=== PATIENT | male | born 1995 | race Caucasian/White ===

== ENCOUNTER 2018-01-21 13:33 | Inpatient (IN) | payer OTHER ==
--- NOTE | 2018-01-21 14:24 | EDPHY ---
H & P Stated Complaint: SI w/ plan Time Seen by Provider: 01/21/18 14:15 HPI/ROS: CHIEF COMPLAINT: Attempted suicide HISTORY OF PRESENT ILLNESS: The patient presents to the ED after failed suicide attempt. 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 The patient reportedly has been feeling despondent secondary to problem surrounding self worth. The patient denies any additional ingestion. He did take some [id number] sleeping pills last night. The patient has attempted suicide before in the past and has not sought care following those attempts. The patient did go to the [facility] and was seen by a counselor at the psychiatric service air who placed the patient on a M1 hold. REVIEW OF SYSTEMS: A comprehensive 10 point review of systems is otherwise negative aside from elements mentioned in the history of present illness. Source: Patient Exam Limitations: No limitations - Personal History Current Tetanus/Diphtheria Vaccine: Yes Current Tetanus Diphtheria and Acellular Pertussis (TDAP): Yes - Medical/Surgical History Hx Asthma: Yes Hx Chronic Respiratory Disease: No Hx Diabetes: No Hx Cardiac Disease: No Hx Renal Disease: No Hx Cirrhosis: No Hx Alcoholism: No Hx HIV/AIDS: No Hx Splenectomy or Spleen Trauma: No Other PMH: wisdom teeth - Social History Smoking Status: Never smoked - Physical Exam Exam: General Appearance: Alert, no distress Eyes: Pupils equal and round no pallor or injection ENT, Mouth: Mucous membranes moist Respiratory: There are no retractions, lungs are clear to auscultation Cardiovascular: Regular rate and rhythm Gastrointestinal: Abdomen is soft and nontender, no masses, bowel sounds normal Neurological: A&O, normal motor function, normal sensory exam, normal cranial nerves Skin: Warm and dry, no rashes Musculoskeletal: Neck is supple nontender Extremities: symmetrical, full range of motion Psychiatric: Suicidal, tearful, endorses ongoing suicidal ideation with plan, cooperative, non agitated, normal thought content and process Constitutional: Initial Vital Signs Temperature (C) 36.7 C 01/21/18 13:33 Heart Rate 102 H 01/21/18 13:33 Respiratory Rate 16 01/21/18 13:33 Blood Pressure 162/90 H 01/21/18 13:33 O2 Sat (%) 95 01/21/18 13:33 O2 Delivery Mode Room Air Allergies/Adverse Reactions: No Known Allergies Allergy (Unverified 01/21/18 13:49) Home Medications: Medication Instructions Recorded Vitamins 01/21/18 Medical Decision Making ED Course/Re-evaluation: The patient presents the emergency department with suicidal ideation having a recent failed suicide attempt. The patient was placed on an M1 psychiatric hold prior to arrival. The patient was medically cleared for psychiatric evaluation by myself at 3:00 p.m.. I did review the patient's screening laboratory studies including a CBC, serum chemistries and urine toxicology panel. Update at 5:00 p.m.: The patient was seen by the psychiatric service in the ED and has been accepted for involuntary psychiatric hospitalization at the inpatient unit at [facility] by Dr. Wander Dubon. I have filled out the EMTALA transfer form. Differential Diagnosis: Differential diagnosis considered includes suicidal ideation, suicide attempt, depression, bipolar mood disorder, psychosis - Data Points Laboratory Results: Laboratory Results 01/21/18 14:28 01/21/18 14:28 01/21/18 01/21/18 01/21/18 14:56 14:28 14:28 WBC 10.76 10^3/uL H 10^3/uL (3.80-9.50) RBC 5.31 10^6/uL 10^6/uL (4.40-6.38) Hgb 15.5 g/dL g/dL (13.7-17.5) Hct 45.2 % % (40.0-51.0) MCV 85.1 fL fL (81.5-99.8) MCH 29.2 pg pg (27.9-34.1) MCHC 34.3 g/dL g/dL (32.4-36.7) RDW 12.1 % % (11.5-15.2) Plt Count 309 10^3/uL 10^3/uL (150-400) MPV 9.8 fL fL (8.7-11.7) Neut % (Auto) 68.6 % % (39.3-74.2) Lymph % (Auto) 24.3 % % (15.0-45.0) Grant % (Auto) 6.1 % % (4.5-13.0) Eos % (Auto) 0.2 % L % (0.6-7.6) Baso % (Auto) 0.6 % % (0.3-1.7) Nucleat RBC Rel Count 0.0 % % (0.0-0.2) Absolute Neuts (auto) 7.39 10^3/uL H 10^3/uL (1.70-6.50) Absolute Lymphs (auto) 2.61 10^3/uL 10^3/uL (1.00-3.00) Absolute Monos (auto) 0.66 10^3/uL 10^3/uL (0.30-0.80) Absolute Eos (auto) 0.02 10^3/uL L 10^3/uL (0.03-0.40) Absolute Basos (auto) 0.06 10^3/uL 10^3/uL (0.02-0.10) Absolute Nucleated RBC 0.00 10^3/uL 10^3/uL (0-0.01) Immature Gran % 0.2 % % (0.0-1.1) Immature Gran # 0.02 10^3/uL 10^3/uL (0.00-0.10) Sodium 142 mEq/L mEq/L (135-145) Potassium 4.0 mEq/L mEq/L (3.5-5.2) Chloride 105 mEq/L mEq/L (97-110) Carbon Dioxide 25 mEq/l mEq/l (22-31) Anion Gap 12 mEq/L mEq/L (6-14) BUN 13 mg/dL mg/dL (7-23) Creatinine 0.6 mg/dL L mg/dL (0.7-1.3) Estimated GFR > 60 Glucose 78 mg/dL mg/dL (70-100) Calcium 9.2 mg/dL mg/dL (8.5-10.4) Urine Opiates Screen NEGATIVE (NEGATIVE) Urine Barbiturates NEGATIVE (NEGATIVE) Ur Phencyclidine Scrn NEGATIVE (NEGATIVE) Ur Amphetamine Screen NEGATIVE (NEGATIVE) U Benzodiazepines Scrn NEGATIVE (NEGATIVE) Urine Cocaine Screen NEGATIVE (NEGATIVE) U Marijuana (THC) Screen NEGATIVE (NEGATIVE) Ethyl Alcohol < 10 mg/dL mg/dL (0-10) Departure - Departure Disposition: [facility] IP Clinical Impression: Suicidal ideation, Severe major depression, Suicide attempt Condition: Good Referrals: NONE *PRIMARY CARE P,. [Primary Care Provider] - As per Instructions
[2018-01-21 14:37] LABS: PLATELET COUNT 309 10^3/uL (150-400)
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
--- NOTE | 2018-01-21 18:55 | ASMTTCLDSP ---
TLC Discharge Disposition Disposition: Answers: Admit Discharge Concerns/Recommendations: Notes: In consultation with [facility] ED physician, Tony Nick MD and [facility] on-call psychiatrist, Wander Dubon MD, both concurred that pt appears to meet 27-65 criteria requiring psychiatric hospitalization as the patient appears to be an imminent risk of harm to self due to a mental illness condition. The patient was given the 3[facility] prohibited belongings list while in the ED. Was patient given the Answers: Yes Inpatient Behavioral Health Prohibited Belongings List while in the ED? For inpatient Wander Dubon MD admission, the following psychiatrist agreed to accept patient for admission to Behavioral Health ([facility]): Type of Hold: Answers: M1/72-hour Hold Hold initiated by: Answers: Other Notes: [facility] Clinicians Date Signed: 01/21/2018 06:55 PM Electronically Signed By:Maame Ma
--- NOTE | 2018-01-21 21:19 | GCON ---
MEDICINE CONSULTATION DATE OF CONSULTATION: 01/21/2018 CHIEF COMPLAINT: Suicidal ideation. HISTORY: This is a 22-year-old man with a past medical history only of depression, who presents to [facility] following a suicide attempt yesterday. The patient stated to the ER doc that he attempted to k ill himself yesterday by inhaling propane. He notes he has been having issues with feeling down and depressed for quite some time. At this time, physically he feels well. He states he has had suicide attempts in the past but has not sought care. He states he has never been in a psychiatric hospital in the past. The patient is currently on an M1 hold, awaiting transfer to [facility]. PAST MEDICAL HISTORY: Denies. PAST SURGICAL HISTORY: Ringle teeth removal. FAMILY HISTORY: He notes grandmother with colon problems and dementia. 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 He is a nondrinker, non smok er, and nondrug user. REVIEW OF SYSTEMS: 10-point review of systems negative except as per HPI. HOME MEDICATIONS: None. ALLERGIES: No known drug allergies. PHYSICAL EXAM: VITAL SIGNS: BP 145/84, heart rate 105, respiratory rate 16, O2 sats 97% on room air . Temperature is 37. GENERAL APPEARANCE: This is a well-developed, well-nourished man. He is awak e and alert. He is depressed appearing. EYES: Anicteric. HENT: Oropharynx clear. CARDIOVASCULAR: Tachycardic, regular, no MRG. PULMONARY: CTA bilaterally. ABDOMEN: Soft, nontender. Positive b owel sounds. EXTREMITIES: No clubbing, cyanosis, or edema. SKIN: Warm, dry, well perfused. NEURO/PSYCH: Patient is somewhat withdrawn and has a depressed affect. He is courteous but reserved . CLINICAL DATA: Labs reviewed. Notable for white blood cell count of 10.7. Chemistry is unremarkabl e. Tox screen is negative. ASSESSMENT/PLAN: This is a 22-year-old man with no significant past medical history other than mood disorder, presenting with suicide attempt. 1. Suicide attempt in the setting of prolonged what sounds like depression. Patient has not sought psychiatric care in the past. He will be admitted to the behavioral health unit. He is on an M1 hol d. I do not see any medical reason to defer any treatment or medication deemed [facility]. 2. Leukocytosis. Suspect this is a stress response. No other signs or symptoms of infection at thi s time. 3. Tachycardia in the setting of anxiety likely related to the same. No further workup indicated un less this becomes persistent over many days in which case he should follow up with his outpatient car e provider. Thank you for this consultation. Medicine will be available peripherally should questions or concern s arise during this patient's hospitalization. Patient is new to my care. Old records reviewed, summarized as per HPI and past medical history. Ca re plan reviewed with ER physician including plans for behavioral health inpatient service. /[id number]/MODL
[2018-01-21] MEDS ORDERED: LORazepam 0.5 MG TAB PO PRN (21:24)
[2018-01-21] MEDS ORDERED: MAG HYDROX/AL HYDROX/SIMETH 30 ML UDCUP PO PRN (21:24)
[2018-01-21] MEDS ORDERED: OLANZapine DISINTEGR 5 MG TAB PO PRN (21:24)
[2018-01-21] MEDS ORDERED: ACETAMINOPHEN 325 MG TAB PO PRN (21:24)
[2018-01-21] MEDS ORDERED: NICOTINE POLACRILEX 2 MG GUM B PRN (21:24)
[2018-01-21] MEDS ORDERED: MAGNESIUM HYDROXIDE 30 ML UDCUP PO PRN (21:24)
--- NOTE | 2018-01-22 07:27 | ASMTBHMTP ---
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 He isliving a home with two roommates in [place], [place]. The patient arrived via EMS on an M1 hold placed by [facility] clinicians after patient self-presented to the walk-in hours and reported suicide attempt, ideation, intent, and plan. Per M1 hold, Mick presents to walk in reporting SI + plan to use propane to asphyxiate himself. Last night took sleeping pills to disinhibit himself so he would not stop himself, but fell asleep. Continues to have SI + planunable to contract for safety. Mick left a suicide note in his bedroom. During the evaluation, the patient had his arms crossed on his chest in an upright position. He was tearful and avoided eye contact with this handbook writer. The patient was calm and cooperative. Patient's stated presenting problems: Notes: "because I was suicidal..." Patient's goals for treatment: Notes: "to over come those feelings (S/I) and cope with them." Patient's strengths: Notes: "smart" Identify supports outside of hospital: Notes: Possibly my Mother, but we don't talk much." Discharge criteria: Notes: Suicidal Ideation will resolve and patient will have a plan to safely manage recurrent suicidal ideation.* Initial disposition plan/considerations: Notes: Return to apartment Master Treatment Plan Required Signatures Psychiatrist signature: Answers: Psychiatrist: RN on-shift signature: Answers: RN: Patient signature: Answers: Patient: Date Signed: 01/22/2018 07:26 AM Electronically Signed By:Charles Lubin
[2018-01-22] MEDS ORDERED: PNEUMOCOCCAL 0.5ML VACCINE VIAL (PNEUMOVAX 23) IM ONE (10:46)
--- NOTE | 2018-01-22 13:38 | PDMN ---
Medical Necessity Medical necessity: Pt meets inpt criteria per MD order and [facility], Major Depressive Disorder, Adult: Inpatient Care, 3 days. 22 y/o on M1 Hold due to risk of harm to self/suicidal ideation, admitted w/major depressive disorder, single episode, severe, requiring inpt psychiatric hospitalization.
--- NOTE | 2018-01-22 16:39 | BAPA ---
DATE OF SERVICE: 01/22/2018 CHIEF COMPLAINT: "I was just feeling really bad." HISTORY OF PRESENT ILLNESS: Patient is a 22-year-old male with no previous psychiatric his tory per se, though a history of recurrent high lethality suicide attempts. He was [facility] to the [facility] after he presented to the [facility] program yesterday. He told them that he had purchased a propane tank and some plastic bags and had intended to take sleeping pills and then wrap his head in the bag and turn on the propane to kill himself. He stated he had previous attempts in a similar fashion with helium, which he states did not work because they had somehow diluted the sara um, by lying on a railroad track, and by hanging himself. He denies, however, ever having been diagn osed or treated for any mental illness per se or having any psychiatric hospitalizations. When I jeannette k with him today, he is calm and cooperative and states that he feels somewhat lonely and ostracized, though he has felt this way his whole life. He states that when he was young, his parents and that later in life, he found a letter that was either some part of their divorce or something hi s father had written to his mother. In the letter, his father outlined that they got a divorce becau se he was addicted to pornography including child pornography, and was verbally abusive. The letter went on to state that he compelled the patient's mother to have an when they were first ruby ied because he did not want children at that time and that he also wanted her to have an whe n she was with the patient. It is something that has hurt his feelings since that time. The patient states that his father is a trade promotion analyst and moved to [place], but that he has not had contac t with him since then when he was [age] years old, and that this is something that continues to both er him. He states that this is pertinent because he himself has struggled with social interactions a nd spends excessive amounts of time viewing online pornography. He specifically denies viewing child pornography, though asks me if what he tells me is confidential. I specifically asked him if there was any aspect of his viewing that he felt particularly guilty about, and he said no, that it was in general as he believed this to be a sin and that he was raised in a fundamental islam family. 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 He states he is motivated to enter psychotherapy and that was h is goal when he went to the CAPS program yesterday. He denies any specific symptoms of depression ex cept for isolation, feelings of hopelessness, helplessness, loneliness, and rather marginal energy at baseline. He states that these things have not changed in a number of years. PAST PSYCHIATRIC HISTORY: As listed above. He denies any previous psychiatric treatments of any kin d. He states he has had now 4 high lethality suicide attempts, but he has not been injured in any of them. He denies any previous psychotropic medications or psychiatric hospitalizations. ALLERGIES: No known medical allergies. CURRENT MEDICATIONS: None. PAST MEDICAL HISTORY: Noncontributory. SOCIAL HISTORY: The patient was born and raised in [place]. He lived there with his mother and his 2 older siblings, who are 8 and 4 years older than him. He states that they still live in [place] near his mother, but that he does not have much contact with any of them. He states when he talks wi th his mother, that he does not feel like he can tell her his problems because he does not want to up set her. He feels very guilty and becomes tearful when he states that she knows he is in the hospita l. He is afraid she will be worried. The patient states that he spends most of his time on his comp uter either doing his course work or viewing pornography. He states that he spent his summer and sen ior year of high school at [employer], studying computer science, and then graduated after that. 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 He states t hat he is doing adequately well, but that he devotes very little time to it. He admits that if he de voted more time, he would excel, and he feels guilty about this. SUBSTANCE ABUSE HISTORY: Patient denies any substance use. FAMILY HISTORY: Significant for possible paraphilia, bipolar disorder, and alcoholism in his father. Patient states that he has several maternal and paternal relatives who are also alcoholic. He denie s any family history of suicide. ADMISSION LABORATORY: CBC shows a white count up at 10.76, otherwise normal. Serum chemistries are normal. Urine drug screen is negative for all substances. Alcohol is less than detectable. MENTAL STATUS EXAMINATION: A slightly obese, though healthy-appearing male. He is casuall y and appropriately dressed. He displays good eye contact and overall calm and pleasant demeanor. H is body position is somewhat closed and withdrawn, and he appears anxious. His affect is otherwise c onstricted, slightly dysphoric, tearful at times, stable, and appropriate. His mood is described as "kind of messed up." His thought process is generally linear and goal directed. His thought content reveals no evidence of psychosis. He is alert and oriented to person, place, time, and situation, a nd his sensorium is clear. His intellect appears to be above average as evidenced by his educational history, fund of knowledge, and vocabulary. He denies any current active thoughts of suicide, thoug h states he does not feel safe to be out of the hospital as his thoughts based in shame and guilt hav e not passed at this point. His insight and judgment appear to be fair. IMPRESSION: Major depressive disorder, recurrent, severe, without psychosis. Possible sexual addict ion. Social isolation. Lack of supports. Recurrent suicidality. The patient is a 22-year-old male with a history of serious high lethality suicide attempts . Yesterday he took sleeping pills in order to facilitate a suicide attempt, but then either fell as leep or decided not to do it. Either way he did not act to harm himself. He then presented of his o wn volition for outpatient treatment, was referred for inpatient stabilization due to the circumstanc e. He states at this time he is motivated to pursue outpatient treatment and feels relieved that he is able to talk in general about the issues he is shameful about. These are specifically those relat ed to the pornography and partly due to his generalized shame in regard to this from his [employer]ism [employer] c[employer], but also in relation to his shame at being in any way similar to his father. PLAN: 1. Admit to the behavioral health services inpatient unit on an M1 hold. 2. Will evaluate, providing serial clinical interviews, and staff observations to best assess his cu rrent status. 3. Will place on suicide precautions until we feel like he is stabilized. 4. Will engage the patient in serial clinical interviews to best understand his underlying condition and possibly consider use of psychotropic medications if these appear to be appropriate. 5. Will participate in active treatment planning in order to refer the [facility]. Will consider sexual addiction treatment as part of this, though would lik cayetano start with just generalized individual psychotherapy. Estimated length of stay is 3-5 days. /[id number]/MODL
--- NOTE | 2018-01-23 14:46 | ASMTCMCOM ---
CM Note CM Note Notes: The patient participated in clinical treatment team rounds. He was calm, engaged, and appropriate. He discussed isolation from support and services due to MH. He referred to the "heavy burden" that accompanies his depression. The patient endorsed feeling "shame" and responsibility for his depression. 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 The patient stated, "I'm feeling better" and that he is much more able to move forward. The patient was initially resistant to connecting with his support system. He spoke with his mother yesterday and reflected on the conversation has having been "much better than imagined." Date Signed: 01/23/2018 02:45 PM Electronically Signed By:Maame Ma
--- NOTE | 2018-01-23 16:48 | SOAPPROG ---
SOAP Progress Note Assessment/Plan: Assessment: Plan: 01/23/18 16:48 Mood: Improving. CCM. Continue d/c planning. Subjective: Pt seen, discussed with staff, interviewed in Treatment Team meeting. Reports feeling "a lot better" today. Affect is brighter and he states he feels better. Discussed d/c plan and he remains motivated to follow-up with outpatient psychotherapy. He plans to leave to go home to [place] until 02/16/18 and then will go to [facility] for a conference. Discussed emergency plan after he leaves. Objective: Vital Signs Temp Pulse Resp BP Pulse Ox 36.7 C 88 16 141/70 H 95 01/23/18 06:00 01/23/18 06:00 01/23/18 06:00 01/23/18 06:00 01/23/18 06:00 - Time Spent With Patient Time Spent With Patient: 25" ICD10 Worksheet Patient Problems: Problems Problem Status Onset Severe major depression Acute Suicidal ideation Acute Suicide attempt Acute
[2018-01-24 06:56] VITALS: BP 117/72
== END 2018-01-24 14:15 | disposition home or self-care (01) | DRG 885 ==
LOC: EEVIPCON 21:05 → BBEH 21:05
PROVIDERS: ADMIT Psychiatry & Neurology Psychiatry; ATTEND Psychiatry & Neurology Psychiatry
DX: F33.2 Major depressive disorder, recurrent severe without psychotic features (principal); R45.851 Suicidal ideations; F41.9 Anxiety disorder, unspecified; D72.829 Elevated white blood cell count, unspecified; Z60.4 Social exclusion and rejection; Z23 Encounter for immunization
CPT/HCPCS: 80305; G0008; G0009; G0480